=== PATIENT | female | born 1940 | race Caucasian/White ===

== ENCOUNTER → 2017-03-21 | Outpatient (CLI) | payer MEDICARE ==
--- NOTE | 2017-03-21 12:32 | REPMRS ---
Patient History The patient states she had a clinical breast exam in 10/20 Family history of breast cancer in sister at age 21. Benign stereotactic core biopsy of the left breast, December 22, 2009. Benign stereotactic core biopsy of the right breast, February 26, 2008. Digital Woman Screen Mammo: March 21, 2017 - Exam #: [id number] Bilateral CC and MLO view(s) were taken. Technologist: Rasheeda Colon, Technologist Prior study comparison: March 19, 2016, digital woman screen mammo performed at [facility]. March 06, 2015, bilateral digital mammo screening bilat, performed at [facility]. FINDINGS: There are scattered fibroglandular densities. There is a fairly symmetric fibroglandular pattern in both breasts. There has been no interval development of masses, areas of architectural distortion or clusters of microcalcifications typical of malignancy. ASSESSMENT: BI-RADS/ACR category 2 mammogram. Benign finding(s). Recommendation Routine screening mammogram of both breasts in 1 year (for women over age 40). This mammogram was interpreted with the aid of an FDA-approved computer-aided dectection system. Electronically Signed By: Awais Mooney MD 03/21/17 4230
== END ==
LOC: M WHC 11:15
PROVIDERS: ATTEND Nurse Practitioner Adult Health
DX: Z12.31 Encounter for screening mammogram for malignant neoplasm of breast (principal); Z80.3 Family history of malignant neoplasm of breast

== ENCOUNTER → 2018-01-20 | Outpatient (REF) | payer MEDICARE ==
[2018-01-25 08:27] LABS: O+P EXAM Final report (.)
== END ==
LOC: M LAB REF 11:22
DX: R19.4 Change in bowel habit (principal)
CPT/HCPCS: 87177

== ENCOUNTER → 2018-03-21 | Outpatient (CLI) | payer MEDICARE | LOC: M WHC 09:20 | DX: Z12.31 Encounter for screening mammogram for malignant neoplasm of breast (principal); Z92.89 Personal history of other medical treatment; Z80.3 Family history of malignant neoplasm of breast | CPT/HCPCS: 77067 ==

== ENCOUNTER → 2019-03-22 | Outpatient (CLI) | payer MEDICARE ==
--- NOTE | 2019-03-22 13:33 | REPMRS ---
Patient History The patient states she has not had a clinical breast exam in over a year. Patient has history of basal cell skin cancer at age 77. Family history of breast cancer at age 21 in sister. Benign stereotactic core biopsy of the left breast, December 22, 2009. Benign stereotactic core biopsy of the right breast, February 26, 2008. No Hormone Replacement Therapy Digital Woman Screen Mammo: March 22, 2019 - Exam #: [id number] Bilateral CC and MLO view(s) were taken. Technologist: Caitlyn Perera, Technologist Prior study comparison: March 21, 2018, bilateral digital woman screen mammo performed at [facility]. March 21, 2017, digital woman screen mammo performed at [facility]. March 19, 2016, digital woman screen mammo performed at [facility]. FINDINGS: There are scattered fibroglandular densities. There is a grouping of microcalcifications in the right central breast which appears to have progressed. This merits further evaluation. A needle biopsy marker clip is again noted in the right breast. There has been no change in the appearance of the mammogram from the prior studies. There is a mild amount of scattered fibroglandular density which is fairly symmetric. There is no interval development of dominant mass, architectural distortion, or grouped microcalcification suggestive of malignancy. 3-D tomosynthesis shows no additional findings. Assessment: BI-RADS/ACR category 0 mammogram, Incomplete: Need additional imaging evaluation and/or prior mammograms for comparison. Recommendation Special view mammogram of the right breast. This patient's Lifetime Breast Cancer Risk is estimated at 4.6 %. This mammogram was interpreted with the aid of an FDA-approved computer-aided dectection system. Electronically Signed By: Doc Enrique MD 03/22/19 0957
== END ==
LOC: M WHC 08:48
PROVIDERS: ATTEND Family Medicine
DX: Z12.31 Encounter for screening mammogram for malignant neoplasm of breast (principal); Z80.3 Family history of malignant neoplasm of breast; Z85.828 Personal history of other malignant neoplasm of skin; R92.0 Mammographic microcalcification found on diagnostic imaging of breast

== ENCOUNTER → 2020-03-07 | Outpatient (CLI) | payer MEDICARE ==
--- NOTE | 2020-03-12 09:04 | REPMRS ---
Patient History The patient states she had a clinical breast exam in December 2019. Family history of breast cancer at age 21 in sister. Benign stereotactic core biopsy of the left breast, December 22, 2009. Benign stereotactic core biopsy of the right breast, February 26, 2008. No Hormone Replacement Therapy 3D TOMOSYNTHESIS WAS PERFORMED. [facility] lifetime risk for breast cancer is 4.0%. VOLPARA DENSITY B. Digital Woman Screen Mammo: March 07, 2020 - Exam #: [id number] Bilateral CC and MLO view(s) were taken. Technologist: Tarsha Lacey, Technologist Prior study comparison: March 22, 2019, bilateral digital woman screen mammo performed at [facility]. March 21, 2018, bilateral digital woman screen mammo performed at [facility]. FINDINGS: There are scattered fibroglandular densities. There is a fairly symmetric fibroglandular pattern in both breasts. There has been no interval development of masses, areas of architectural distortion or clusters of microcalcifications typical of malignancy. Stable scattered tiny calcifications are noted bilaterally. No significant changes when compared with prior studies. Assessment: BI-RADS/ACR category 2 mammogram. Benign Findings. Recommendation Routine screening mammogram of both breasts in 1 year (for women over age 40). This mammogram was interpreted with the aid of an FDA-approved computer-aided dectection system. Electronically Signed By: Awais Mooney MD 03/12/20 0903
== END ==
LOC: M WHC 09:29
PROVIDERS: ATTEND Family Medicine
DX: Z12.31 Encounter for screening mammogram for malignant neoplasm of breast (principal); Z80.3 Family history of malignant neoplasm of breast

== ENCOUNTER 2020-04-22 11:04 | Emergency (ER) | payer MEDICARE ==
[~2020-04-22] VITALS: Ht 157.5 cm; Wt 72.1 kg
[2020-04-22] MEDS ORDERED: ATOR1TAB21 PO (11:29)
[2020-04-22] MEDS ORDERED: ADVA115A INH (11:29)
[2020-04-22] MEDS ORDERED: SERT-138 PO (11:29)
[2020-04-22] MEDS ORDERED: NS 1,000 ML IV SCH (12:41)
[2020-04-22] MEDS ORDERED: MECLIZINE 25 MG TABLET PO ONE (12:45)
[2020-04-22] MEDS ORDERED: ONDANSETRON 4MG/2ML VIAL IV ONE (12:45)
--- NOTE | 2020-04-22 13:08 | REPVR ---
PROCEDURE INFORMATION: Exam: CT Head Without Contrast Exam date and time: 04/22/2020 1:00 PM Age: 79 years old Clinical indication: Altered mental status/memory loss TECHNIQUE: Imaging protocol: Computed tomography of the head without contrast. Radiation optimization: All CT scans at this facility use at least one of these dose optimization techniques: automated exposure control; mA and/or kV adjustment per patient size (includes targeted exams where dose is matched to clinical indication); or iterative reconstruction. COMPARISON: No relevant prior studies available. FINDINGS: Brain: There is a coarsely calcified extra-axial mass along the right tentorium, suggestive of meningioma. There is no acute hemorrhage or mass effect. Mild diffuse volume loss is within the range of normal for patient age. Cerebral ventricles: No ventriculomegaly. Bones/joints: Unremarkable. No acute fracture. Paranasal sinuses: There is mild maxillary sinus mucosal thickening. Mastoid air cells: There is fluid opacification of left mastoid air cells. Soft tissues: Unremarkable. IMPRESSION: No acute hemorrhage or edema. Right posterior fossa meningioma. Electronically signed by: Alice Meza On 04/22/2020 13:08:16 PM
--- NOTE | 2020-04-22 13:23 | REP ---
INDICATION: Altered Mental Status. COMPARISON: 01/21/2014. TECHNIQUE: SINGLE PORTABLE AP VIEW OF THE CHEST WAS PERFORMED. FINDINGS: THERE IS NO ACUTE INFILTRATE OR PULMONARY EDEMA. LUNGS ARE CLEAR. HEART IS NOT SIGNIFICANTLY ENLARGED. MEDIASTINAL SILHOUETTE IS UNREMARKABLE. THE VISUALIZED OSSEOUS STRUCTURES ARE INTACT.There is some calcification of the thoracic aorta. IMPRESSION: NO ACUTE PULMONARY DISEASE. <Electronically signed by Awais Mooney > 04/22/20 [id number]
[2020-04-22 14:02] LABS: BASO % 0.5 % (0.0-1.0); EOS # 0.1 10^3/uL (0.0-0.5); EOS % 0.8 % (0.0-3.0); HEMATOCRIT 43.8 % (36.0-47.0); HEMOGLOBIN 14.5 g/dl (12.0-15.5); LYMPH # 1.7 10^3/uL (1.5-5.0); LYMPH % 19.4 % (24.0-44.0); MEAN CORPUSCULAR HEMOGLOBIN 30.3 pg (27.0-33.0); MEAN CORPUSCULAR HGB CONC 33.1 g/dl (32.0-36.5); MEAN CORPUSCULAR VOLUME 91.4 fl (80.0-96.0); MONO # 0.4 10^3/uL (0.0-0.8); MONO % 4.4 % (0.0-5.0); NEUTROPHILS # 6.3 10^3/uL (1.5-8.5); NEUTROPHILS % 74.7 % (36.0-66.0); PLATELET COUNT, AUTOMATED 240 10^3/uL (150-450); RED BLOOD COUNT 4.79 10^6/uL (4.00-5.40); WHITE BLOOD COUNT 8.5 10^3/uL (4.0-10.0)
[2020-04-22 14:38] LABS: ACETAMINOPHEN LEVEL 7.8 UG/ML (10.0-30.0); ALBUMIN 3.9 GM/DL (3.2-5.2); ALT/SGPT 31 U/L (12-78); BILIRUBIN,DIRECT 0.1 MG/DL (0.0-0.2); BILIRUBIN,TOTAL 0.6 MG/DL (0.2-1.0); BLOOD UREA NITROGEN 23 MG/DL (7-18); CALCIUM LEVEL 9.8 MG/DL (8.8-10.2); CARBON DIOXIDE LEVEL 25 MEQ/L (21-32); CHLORIDE LEVEL 109 MEQ/L (98-107); CK-MB VALUE MASS 1.9 NG/ML (<3.6); CPK CREATINE PHOSPHOKINASE 64 U/L (26-192); CREATININE FOR GFR 0.72 MG/DL (0.55-1.30); ETHYL ALCOHOL (ETHANOL) < 0.003 % (0.000-0.010); GLOMERULAR FILTRATION RATE > 60.0 (>39); GLUCOSE, FASTING 124 MG/DL (70-100); MB/CK RELATIVE INDEX 2.97 (< OR =4); POTASSIUM SERUM 4.1 MEQ/L (3.5-5.1); SALICYLATE LEVEL < 1.7 MG/DL (5.0-30.0); SODIUM LEVEL 140 MEQ/L (136-145); TOTAL PROTEIN 7.6 GM/DL (6.4-8.2); TROPONIN I < 0.02 NG/ML (< 0.10)
[2020-04-22] MEDS ORDERED: MECL1TAB31 PO (15:39)
[2020-04-22 16:00] VITALS: BP 132/72
--- NOTE | 2020-04-22 21:12 | ECGEPIP ---
[facility] - ED Test Date: 2020-04-22 Pat Name: KARRI KNIGHT Department: Room: - Gender: Female [employer]: ` : 1940 Requested By: KEVIN DACOSTA Order Number: [id number] Reading MD: Srikanth Burton Measurements Intervals [place] Rate: 66 P: -8 ND: 185 QRS: -20 QRSD: 96 T: 54 QT: 413 QTc: 435 Interpretive Statements SINUS RHYTHM Comparison tracing not on file Electronically Signed on 04-22-2020 21:12:05 EST by Srikanth Burton
--- NOTE | 2020-04-23 10:19 | ED PDOC ---
Post-Departure Follow-Up certified letter sent to tp re formal read of ct head. needs fu. obtain pcp name and fax to pcp Ulysses Valerio MD Apr 23, 2020 10:19
== END 2020-04-22 16:15 | disposition home or self-care (01) ==
LOC: EDBD 11:04 → M ED 11:04
DX: H83.09 Labyrinthitis, unspecified ear (principal); F41.9 Anxiety disorder, unspecified; E78.5 Hyperlipidemia, unspecified; J45.909 Unspecified asthma, uncomplicated; I10 Essential (primary) hypertension; Z79.51 Long term (current) use of inhaled steroids; Z79.899 Other long term (current) drug therapy
CPT/HCPCS: 70450; 71045; 80048; 80076; 82140; 82550; 82553; 84443; 84484; 85025; 93005; 94760; 96361; 96374; 99285; G0480; J2405

== ENCOUNTER → 2021-03-09 | Outpatient (CLI) | payer MEDICARE ==
[~2021-03-09] MED LIST: ADVA115A INH; ATOR1TAB21 PO; MECL1TAB31 PO; SERT-138 PO
--- NOTE | 2021-03-09 11:02 | REPMRS ---
Patient History The patient states she has not had a clinical breast exam in over a year. Family history of breast cancer at age 21 in sister. Benign stereotactic core biopsy of the left breast, December 22, 2009. Benign stereotactic core biopsy of the right breast, February 26, 2008. No Hormone Replacement Therapy No breast complaints today 1st covid vaccine 08/20/20-Moderna 2nd covid vaccine 09/22/20/patient does not remember which arm either were in Patient states she has lost about 20lbs in the last year due to stress Priors on PACS Patient Identification Verified Digital Woman Screen Mammo: March 09, 2021 - Exam #: [id number] Bilateral CC and MLO view(s) were taken. Technologist: Marina Guzmán, Technologist Prior study comparison: March 07, 2020, bilateral digital woman screen mammo performed at [facility]. March 22, 2019, bilateral digital woman screen mammo performed at [facility]. March 21, 2018, bilateral digital woman screen mammo performed at [facility]. FINDINGS: There are scattered fibroglandular densities. The Volpara volumetric breast density category is:B. There are multiple scattered groupings of microcalcification in both breasts unchanged from multiple prior studies. There is a marker clip adjacent to 1 of these in the upper outer quadrant on the right. There is stable nodule in the subareolar zone on the left. There has been no change in the appearance of the mammogram from the prior studies. There is a mild amount of scattered fibroglandular density which is fairly symmetric. There is no interval development of dominant mass, architectural distortion, or grouped microcalcification suggestive of malignancy. 3-D tomosynthesis shows no additional findings. Assessment: BI-RADS/ACR category 2 mammogram. Benign Findings. Recommendation Routine screening mammogram of both breasts in 1 year (for women over age 40). This patient's [facility] Lifetime Breast Cancer Risk is estimated at 3.4 %. This mammogram was interpreted with the aid of an FDA-approved computer-aided dectection system. Electronically Signed By: Doc Enrique MD 03/09/21 2239
--- NOTE | 2021-03-09 11:14 | DEXAMM ---
INDICATION: DISORDER OF BONE. COMPARISON: March 19, 2016. TECHNIQUE: Bone density was measured using dual-energy x-ray absorptionmetry (DEXA). FINDINGS: AP SPINE L1-L4 BMD 0.854 g/cm2 Young Adult T-Score -2.7 Age Matched Z-Score -0.9. LT FEMUR, TOTAL BMD 0.827 g/cm2 Young Adult T-Score -1.4 Age Matched Z-Score 0.6. LT NECK BMD 60.726 g/cm2 Young Adult T-Score -2.2 Age Matched Z-Score -0.1. RT FEMUR, TOTAL BMD 0.796 g/cm2 Young Adult T-Score -1.7 Age Matched Z-Score 0.3. RT NECK BMD 0.726 g/cm2 Young Adult T-Score -2.2 Age Matched Z-Score -0.1. IMPRESSION: There is osteoporosis of the spine. There is low bone density of the left hip. There is low bone density of the right hip. The density of the spine has decreased 12.0% since the initial exam on March 10, 2001. The density of the spine decreased 0.2% since most recent exam on March 19, 2016. The density of the left hip has decreased 11.3% since initial exam on March 10, 2001. The density of the left hip has decreased 1.2% since most recent exam on March 19, 2016. The density of the right hip has decreased 13.0% since the initial exam on March 10, 2001. The density of the right hip has decreased 4.6% since the most recent exam on March 19, 2016. FOLLOW-UP: Recommendation for the next bone density exam: 2-5 years.. <Electronically signed by Doc Enrique > 03/09/21 1111
== END ==
LOC: M WHC 09:37
PROVIDERS: ATTEND Family Medicine
DX: Z12.31 Encounter for screening mammogram for malignant neoplasm of breast (principal); M85.89 Other specified disorders of bone density and structure, multiple sites

== ENCOUNTER → 2021-11-09 | Outpatient (REF) | payer MEDICARE ==
[2021-11-09 12:59] LABS: ALBUMIN 3.8 GM/DL (3.2-5.2); ALT/SGPT 36 U/L (12-78); BILIRUBIN,TOTAL 0.6 MG/DL (0.2-1.0); BLOOD UREA NITROGEN 17 MG/DL (7-18); CARBON DIOXIDE LEVEL 26 MEQ/L (21-32); CHLORIDE LEVEL 107 MEQ/L (98-107); CHOLESTEROL LEVEL 169 MG/DL (<200); CHOLESTEROL RISK RATIO 4.121 (<5); CREATININE FOR GFR 0.92 MG/DL (0.55-1.30); GLOMERULAR FILTRATION RATE > 60.0 (>32); GLUCOSE, FASTING 110 MG/DL (70-100); HDL CHOLESTEROL 41 MG/DL (>40); LDL CHOLESTEROL 102 MG/DL (<100); NON-HDL-C 128 MG/DL; SODIUM LEVEL 139 MEQ/L (136-145); TOTAL PROTEIN 7.4 GM/DL (6.4-8.2); TRIGLYCERIDES LEVEL 128 MG/DL (<150)
[2021-11-09 13:06] LABS: TOTAL 25(OH) VITAMIN D 19.3 NG/ML (30.0-100.0)
[2021-11-09 13:36] LABS: HEMOGLOBIN A1c 6.2 %
== END ==
LOC: M WUC 12:22
PROVIDERS: ATTEND Family Medicine
DX: R73.01 Impaired fasting glucose (principal); E78.00 Pure hypercholesterolemia, unspecified; E78.5 Hyperlipidemia, unspecified

== ENCOUNTER → 2022-03-10 | Outpatient (CLI) | payer MEDICARE | LOC: M WHC 11:05 | PROVIDERS: ATTEND Family Medicine | DX: Z12.31 Encounter for screening mammogram for malignant neoplasm of breast (principal) ==

== ENCOUNTER → 2023-03-11 | Outpatient (CLI) | payer MEDICARE ==
[~2023-03-11] MED LIST changes: +MECL-209 PO; -MECL1TAB31 PO
== END ==
LOC: M WHC 08:49
PROVIDERS: ATTEND Family Medicine
DX: Z12.31 Encounter for screening mammogram for malignant neoplasm of breast (principal); M81.0 Age-related osteoporosis without current pathological fracture; Z78.0 Asymptomatic menopausal state

== ENCOUNTER 2023-06-30 17:41 | Emergency (ER) | payer MEDICARE ==
[~2023-06-30] VITALS: Ht 157.5 cm; Wt 73.5 kg
[2023-06-30] MEDS ORDERED: ACET1TAB55 PO (17:54)
[2023-06-30 20:07] LABS: BASO % 0.2 % (0.0-1.0); EOS % 0.3 % (0.0-3.0); HEMATOCRIT 41.7 % (36.0-47.0); HEMOGLOBIN 13.9 g/dl (12.0-15.5); LYMPH # 1.5 10^3/uL (1.5-5.0); MEAN CORPUSCULAR HEMOGLOBIN 30.8 pg (27.0-33.0); MEAN CORPUSCULAR HGB CONC 33.3 g/dl (32.0-36.5); MEAN CORPUSCULAR VOLUME 92.3 fl (80.0-96.0); MONO # 0.7 10^3/uL (0.0-0.8); MONO % 5.8 % (2.0-8.0); NEUTROPHILS % 81.5 % (36.0-66.0); PLATELET COUNT, AUTOMATED 248 10^3/uL (150-450); RED BLOOD COUNT 4.52 10^6/uL (4.00-5.40); WHITE BLOOD COUNT 12.3 10^3/uL (4.0-10.0)
[2023-06-30 20:21] LABS: INR 1.07; PROTHROMBIN TIME 13.5 SECONDS (12.5-14.5)
[2023-06-30 20:33] LABS: LIPASE 33 U/L (12-53)
[2023-06-30 20:35] LABS: ALKALINE PHOSPHATASE 89 U/L (46-116); ALT/SGPT 25 U/L (7.0-40); AST/SGOT 32 U/L (<34); BILIRUBIN,DIRECT 0.2 MG/DL (<0.4); BILIRUBIN,TOTAL 0.7 MG/DL (0.3-1.2); BLOOD UREA NITROGEN 25 MG/DL (9-23); CALCIUM LEVEL 9.6 MG/DL (8.3-10.6); CARBON DIOXIDE LEVEL 24 MMOL/L (20-31); CHLORIDE LEVEL 108 MMOL/L (98-107); CREATININE FOR GFR 0.88 MG/DL (0.55-1.30); GLOMERULAR FILTRATION RATE > 60.0 (>32); GLUCOSE, FASTING 128 MG/DL (74-106); POTASSIUM SERUM 4.4 MMOL/L (3.5-5.1); SODIUM LEVEL 141 MMOL/L (136-145); TOTAL PROTEIN 7.5 G/DL (5.7-8.2)
[2023-06-30] MEDS ORDERED: KETOROLAC 30 MG/ML 1ML VIAL IV ONE (21:05)
[2023-06-30] MEDS ORDERED: NS 1,000 ML IV ONE (21:05)
[2023-06-30] MEDS ORDERED: ISOVUE-370 76% 100ML VIAL As Ordered ONE (21:07)
[2023-06-30] MEDS ORDERED: cefTRIAXone SOD 1GM VIAL IM ONE (22:50)
[2023-06-30] MEDS ORDERED: LIDOCAINE 1% SDV 5ML VIAL DILUENT ONE (22:50)
[2023-06-30] MEDS ORDERED: FLOM0.4C39 PO (22:51)
[2023-06-30] MEDS ORDERED: CEPH500C PO (22:51)
[2023-06-30] MEDS ORDERED: HYDR-3713 PO (22:51)
[2023-06-30 23:05] VITALS: BP 124/88; TEMP 98.8; O2SAT 98
== END 2023-06-30 23:07 | disposition home or self-care (01) ==
LOC: M ED 17:41
DX: N20.0 Calculus of kidney (principal); E78.5 Hyperlipidemia, unspecified; H81.4 Vertigo of central origin; F41.9 Anxiety disorder, unspecified; J45.909 Unspecified asthma, uncomplicated; Z87.442 Personal history of urinary calculi; Z86.73 Personal history of transient ischemic attack (TIA), and cerebral infarction without residual deficits; Z79.1 Long term (current) use of non-steroidal anti-inflammatories (NSAID); Z79.899 Other long term (current) drug therapy
CPT/HCPCS: 74177; 80047; 80053; 81001; 82248; 83690; 85025; 85610; 87086; 96361; 96374; 96375; 99284; J0696; J1885; Q9967